=== PATIENT | female | born 1970 | race Caucasian/White ===

== ENCOUNTER 2018-07-20 20:03 | Emergency (ER) | payer MEDICAID ==
[~2018-07-20] VITALS: Ht 157.5 cm; Wt 119.0 kg
[2018-07-20 20:04] VITALS: Ht 157.5 cm; Wt 119.0 kg
[2018-07-20] MEDS ORDERED: KETOROLAC 30 MG INJ IM STA (21:05)
[2018-07-20] MEDS ORDERED: LIDOCAINE/MYLANTA 40 ML BTL PO ONE (21:30)
[2018-07-20] MEDS ORDERED: ACET500T98 PO (22:38)
[2018-07-20] MEDS ORDERED: MAG-19 PO (22:38)
[2018-07-20 23:31] VITALS: BP 160/84; PULSE 79; RESP 18
--- NOTE | 2018-07-21 07:01 | ERD ---
ER Documentation Chief Complaint Chief Complaint ABD PAIN STARTED TODAY; NO N/V/D/C HPI 48-year-old female presents for abdominal pain times 1 day. Past medical history of diabetes, hypertension. History of small bowel obstruction with colonic perforation requiring colostomy. Colostomy has since been reversed..Pa in is noted to be in the upper abdomen. She states that the pain is 10 out of 10, described as sharp. Denies any nausea, vomiting, diarrhea. She did have a bowel movement today which was noted to be normal. Patient did note that she ate some tacos yesterday which was greasy and may be the cause of her abdominal pain. Denies any shortness of breath or chest pain. ROS All systems reviewed and are negative except as per history of present illness. Medications Home Meds Active Scripts Acetaminophen (Tylenol) 500 Mg Tab, 500 MG PO Q4H PRN for PAIN, #30 TAB Prov:JIAN RAPHAEL 07/20/18 Magaldrate/Simethicone* (Mylanta*) 355 Ml Susp, 30 ML PO QID PRN for GASTROINTESTINAL UPSET, #1 BOTTLE Prov:JIAN RAPHAEL 07/20/18 Allergies Allergies: Coded Allergies: No Known Allergy (Unverified , 07/20/18) PMhx/Soc Hx Miscellaneous Medical Probl: Yes (DM, HTN) Hx Alcohol Use: No Hx Substance Use: No Hx Tobacco Use: No Smoking Status: Never smoker Physical Exam Vitals Vital Signs Date Temp Pulse Resp B/P (MAP) Pulse Ox O2 O2 Flow FiO2 Time Delivery Rate 07/20/18 99.0 79 18 160/84 98 Room Air 23:31 (109) 07/20/18 97.8 86 19 172/92 98 20:04 (118) Physical Exam Const: No acute distress Resp: Clear to auscultation bilaterally Cardio: Regular rate and rhythm, no murmurs Abd: Soft, non distended. Normal bowel sounds, mild epigastric tenderness to palpation, no McBurney's point tenderness, no Shafer sign, no rebound or guarding noted Skin: No petechiae or rashes Back: No midline or flank tenderness Ext: No cyanosis, or edema Neur: Awake and alert Psych: Normal Mood and Affect Results 24 hrs Laboratory Tests Test 07/20/18 21:14 07/20/18 21:16 07/20/18 21:19 Urine Color STRAW Urine Clarity SLIGHTLY CLOUDY Urine pH 6.0 Urine Specific [place] 1.028 Urine Ketones NEGATIVE mg/dL Urine Nitrite NEGATIVE mg/dL Urine Bilirubin NEGATIVE mg/dL Urine Urobilinogen NEGATIVE mg/dL Urine Leukocyte Esterase TRACE Mabel/ul Urine Microscopic RBC 2 /HPF Urine Microscopic WBC 2 /HPF Urine Squamous Epithelial Cells FEW /HPF Urine Bacteria FEW /HPF Urine Hemoglobin 1+ mg/dL Urine Glucose 3+ mg/dL Urine Total Protein 1+ mg/dl POC Beta HCG, Qualitative NEGATIVE White Blood Count 8.7 10^3/ul Red Blood Count 5.02 10^6/ul Hemoglobin 13.2 g/dl Hematocrit 42.4 % Mean Corpuscular Volume 84.5 fl Mean Corpuscular Hemoglobin 26.3 pg Mean Corpuscular 31.1 g/dl Hemoglobin Concent Red Cell Distribution Width 13.3 % Platelet Count 245 10^3/UL Mean Platelet Volume 11.3 fl Immature Granulocytes % 0.600 % Neutrophils % 52.9 % Lymphocytes % 36.8 % Monocytes % 6.6 % Eosinophils % 2.6 % Basophils % 0.5 % Nucleated Red Blood Cells % 0.0 /100WBC Immature Granulocytes # 0.050 10^3/ul Neutrophils # 4.6 10^3/ul Lymphocytes # 3.2 10^3/ul Monocytes # 0.6 10^3/ul Eosinophils # 0.2 10^3/ul Basophils # 0.0 10^3/ul Nucleated Red Blood Cells # 0.0 10^3/ul Sodium Level 142 mmol/L Potassium Level 4.3 mmol/L Chloride Level 99 mmol/L Carbon Dioxide Level 29 mmol/L Anion Gap 14 Blood Urea Nitrogen 15 mg/dl Creatinine 0.64 mg/dl Est Glomerular Filtrat > 60 mL/min Rate mL/min Glucose Level 427 mg/dl Calcium Level 9.4 mg/dl Total Bilirubin 0.0 mg/dl Direct Bilirubin 0.00 mg/dl Indirect Bilirubin 0.0 mg/dl Aspartate Amino 38 IU/L Transf (AST/SGOT) Alanine 40 IU/L Aminotransferase (ALT/SGPT) Alkaline Phosphatase 187 IU/L Total Protein 8.2 g/dl Albumin 4.2 g/dl Globulin 4.00 g/dl Albumin/Globulin Ratio 1.05 Lipase 128 U/L Current Medications Medications Dose Sig/Malissa Start Time Status Last (Trade) Ordered Route PRN Stop Time Admin Dose Reason Admin Ketorolac 30 mg ONCE STAT 07/20/18 DC 07/20/18 Tromethamine IM 21:05 21:21 (Toradol) 07/20/18 21:07 40 ml ONCE ONCE 07/20/18 DC 07/20/18 Miscellaneous PO 21:30 21:19 Medication 07/20/18 21:31 (Gi Cocktail (2)) Procedures/MDM Medical Decision Making: Differential diagnosis includes but not limited to acute gastritis, acute gastroenteritis, appendicitis, cholecystitis, pancreatitis. Patient appeared well on physical exam. Nontoxic appearing. EKG showed normal sinus rhythm, no ST or T wave changes. Labs: CBC showed no anemia, no elevated WBC to suggest infection CMP showed no electrolyte abnormalities, there was normal kidney and liver function. Blood sugar noted to be 427 Lipase was normal Urine was negative UA was negative for infection Patient does have a history of diabetes. On further questioning patient states that she not take her diabetes medication today. Patient does not look septic, labs were otherwise unremarkable. Patient was not in DKA. Patient advised to continue to take her medications for diabetes at home. Patient advised to follow-up with her primary care physician in 1-2 days for recheck of her blood sugar. Imaging: CT abdomen pelvis without contrast showed Mildly dilated loops of small bowel within the mid to left abdomen could represent an ileus or partial obstruction. Follow-up is recommended. Diastasis recti with moderate ventral abdominal hernia containing bowel. Fatty infiltration of the liver. Left adnexal 3.8 cm cysts. ED course: Patient was given Toradol, GI cocktail. Symptoms improved with treatment. Although the CT abdomen did show possibility of ileus versus partial obstruction, physical examination of the abdomen was soft, patient did have normal bowel movement after she developed abdominal pain today. There is low suspicion for small bowel obstruction. Possible the patient may have abdominal pain from the ventral abdominal hernia. There is no palpable masses noted on the abdomen. Patient advised to follow-up with her primary care physician for possible referral for general surgery Patient continues to have abdominal pain. Given that the symptoms resolved with treatment in the ER patient likely has an acute gastritis. Currently there is low suspicion for an acute abdomen. Prescription(s): Patient given prescription for Mylanta, Tylenol. Patient advised to follow up with PCP in 1-2 days. Patient advised to return to ED for new or worsening symptoms. Patient stable on discharge from the ED. Disclaimer: Inadvertent spelling and grammatical errors are likely due to EHR/dictation software use and do not reflect on the overall quality of patient care. Also, please note that the electronic time recorded on this note does not necessarily reflect the actual time of the patient encounter. Departure Diagnosis: Primary Impression: Abdominal pain Additional Impression: Hyperglycemia Condition: Fair Patient Instructions: Abdominal Pain, Ileus, Gastritis (Adult) Referrals: [facility] YOU HAVE RECEIVED A MEDICAL SCREENING EXAM AND THE RESULTS INDICATE THAT YOU DO NOT HAVE A CONDITION THAT REQUIRES URGENT TREATMENT IN THE EMERGENCY DEPARTMENT. FURTHER EVALUATION AND TREATMENT OF YOUR CONDITION CAN WAIT UNTIL YOU ARE SEEN IN YOUR DOCTORS OFFICE WITHIN THE NEXT 1-2 DAYS. IT IS YOUR RESPONSIBILITY TO MAKE AN APPOINTMENT FOR FOLOW-UP CARE. IF YOU HAVE A PRIMARY DOCTOR --you should call your primary doctor and schedule an appointment IF YOU DO NOT HAVE A PRIMARY DOCTOR YOU CAN CALL OUR PHYSICIAN REFERRAL HOTLINE AT IF YOU CAN NOT AFFORD TO SEE A PHYSICIAN YOU CAN CHOSE FROM THE FOLLOWING CO [facility] [address] [facility] [address] [facility] [address] [facility] [facility] [address] [facility]. [facility] [address] [facility]. [facility]. [address] Additional Instructions: Call your primary care doctor TOMORROW for an appointment during the next 1-2 days.See the doctor sooner or return here if your condition worsens before your appointment time. JIAN RAPHAEL DO Jul 21, 2018 07:01
== END 2018-07-20 23:32 | disposition home or self-care (01) ==
LOC: FTE 20:03
DX: R10.9 Unspecified abdominal pain (principal); E11.65 Type 2 diabetes mellitus with hyperglycemia; I10 Essential (primary) hypertension
CPT/HCPCS: 36415; 74176; 80053; 81001; 81025; 83690; 85025; 93005; 96372; J1885; Z7502; Z7610

== ENCOUNTER 2018-12-29 18:25 | Emergency (ER) | payer MEDICAID ==
[~2018-12-29] VITALS: Ht 162.6 cm; Wt 122.2 kg
[~2018-12-29 18:25] MED LIST: ACET500T98 PO; MAG-19 PO
[2018-12-29 18:36] VITALS: Ht 162.6 cm; Wt 122.2 kg
--- NOTE | 2018-12-29 18:45 | ERD ---
ER Documentation Chief Complaint Chief Complaint AP X'S 1 DAY HPI 48-year-old female diabetic, hypertensive history of colon perforation treated with diverting colostomy and subsequent reversal several years ago presents to the ED complaining of 1 day history of moderate, crampy, nonradiating diffuse upper abdominal pain. Denies nausea, vomiting, diarrhea or constipation. Had a normal bowel movement earlier today and continues to pass gas. Pain decreased significantly with ibuprofen and but is still present. No other relieving or exacerbating factors. Denies chest pain, palpitations or shortness of breath. No fevers or chills. ROS All systems reviewed and are negative except as per history of present illness. Medications Home Meds Active Scripts Acetaminophen (Tylenol) 500 Mg Tab, 500 MG PO Q4H PRN for PAIN, #30 TAB Prov:JIAN RAPHAEL DO 07/20/18 Magaldrate/Simethicone* (Mylanta*) 355 Ml Susp, 30 ML PO QID PRN for GASTROINTESTINAL UPSET, #1 BOTTLE Prov:JIAN RAPHAEL DO 07/20/18 Allergies Allergies: Coded Allergies: No Known Allergy (Unverified , 07/20/18) PMhx/Soc Reviewed in chart. As per HPI. History of Surgery: Yes (Bowel resection, colostomy and subsequent reversal) Anesthesia Reaction: No Hx Neurological Disorder: No Hx Respiratory Disorders: No Hx Cardiac Disorders: Yes (Hypertension) Hx Psychiatric Problems: No Hx Miscellaneous Medical Probl: Yes (Diabetes) Hx Alcohol Use: No Hx Substance Use: No Hx Tobacco Use: No FmHx Mother: Diabetes. No family history of cancer or stroke Physical Exam Vitals Vital Signs Date Temp Pulse Resp B/P (MAP) Pulse Ox O2 O2 Flow FiO2 Time Delivery Rate 12/29/18 84 18 129/83 98 Room Air 21:14 (98) 12/29/18 97.8 91 18 168/103 97 18:36 (124) Physical Exam Const: Alert, mild distress Head: Atraumatic Eyes: Normal Conjunctiva ENT: Normal External Ears, Nose and Mouth. Neck: Full range of motion. No meningismus. Resp: Clear to auscultation bilaterally Cardio: Regular rate and rhythm, no murmurs Abd: Normal bowel sounds. Soft, obese, mild, diffuse upper abdominal tenderness. Negative Shafer sign. No rebound or guarding. Well-healed midline incision. Skin: No petechiae or rashes Back: No midline or flank tenderness Ext: No cyanosis, or edema Neur: Awake and alert Psych: Normal Mood and Affect Result Diagram: 12/29/18193712/29/181937 Results 24 hrs Laboratory Tests Test 12/29/18 19:38 White Blood Count 9.0 10^3/ul Red Blood Count 4.38 10^6/ul Hemoglobin 11.7 g/dl Hematocrit 37.3 % Mean Corpuscular Volume 85.2 fl Mean Corpuscular Hemoglobin 26.7 pg Mean Corpuscular Hemoglobin Concent 31.4 g/dl Red Cell Distribution Width 13.6 % Platelet Count 269 10^3/UL Mean Platelet Volume 10.7 fl Immature Granulocytes % 0.400 % Neutrophils % 63.3 % Lymphocytes % 28.2 % Monocytes % 5.5 % Eosinophils % 2.2 % Basophils % 0.4 % Nucleated Red Blood Cells % 0.0 /100WBC Immature Granulocytes # 0.040 10^3/ul Neutrophils # 5.7 10^3/ul Lymphocytes # 2.5 10^3/ul Monocytes # 0.5 10^3/ul Eosinophils # 0.2 10^3/ul Basophils # 0.0 10^3/ul Nucleated Red Blood Cells # 0.0 10^3/ul Sodium Level 141 mmol/L Potassium Level 4.0 mmol/L Chloride Level 102 mmol/L Carbon Dioxide Level 29 mmol/L Anion Gap 10 Blood Urea Nitrogen 16 mg/dl Creatinine 1.00 mg/dl Est Glomerular Filtrat Rate mL/min 59 mL/min Glucose Level 258 mg/dl Calcium Level 9.0 mg/dl Total Bilirubin 0.4 mg/dl Direct Bilirubin 0.00 mg/dl Indirect Bilirubin 0.4 mg/dl Aspartate Amino Transf (AST/SGOT) 36 IU/L Alanine Aminotransferase (ALT/SGPT) 32 IU/L Alkaline Phosphatase 111 IU/L Troponin I < 0.012 ng/ml Total Protein 7.7 g/dl Albumin 4.0 g/dl Globulin 3.70 g/dl Albumin/Globulin Ratio 1.08 Lipase 204 U/L Procedures/MDM DOCUMENTS REVIEWED: ED nurse, prior records EKG: Time: 1935. Sinus rhythm. Ventricular rate 82, normal MS and QRS intervals. No acute ST segment elevation or depression. No axis deviation or ectopy. My Interpretation: Normal EKG IMAGING: PROCEDURE: US Abdomen Right Upper Quadrant. CLINICAL INDICATION: Abdominal pain TECHNIQUE: Multiple real-time longitudinal and transverse images were acquired of the patient's right upper quadrant abdomen utilizing a curved array transducer. COMPARISON: Comparison to the previous CT of the abdomen and pelvis done 07/20/2018. On the previous CT there was diastases recti with a moderate ventral abdominal hernia containing bowel, evidence of previous bowel resection along with the suggestion of at least partial small bowel obstruction. 0.5 cm left adnexal cyst was evident. The liver appeared enlarged and diffusely fatty infiltrated. FINDINGS: Liver: The liver is enlarged in size with the sagittal diameter of the right lobe measuring 19.8 cm. The hepatic echotexture is diffusely increased. No focal lesion is evident. There is normal directional flow of the main portal vein. Gallbladder: The gallbladder appears somewhat contracted. No shadowing stone is identified. Bile ducts: There is no significant intra or extrahepatic bile duct dilatation. The common bile duct measures 4.2 mm in cross diameter. No choledocholiths are seen within the visualized portions of the duct. Pancreas: The visualized head, body and proximal tail of the pancreas appear unremarkable. Right kidney: Normal in echotexture and in size. The right kidney measures 11.8 cm in length. No mass, pathological calcification, or hydronephrosis is evident. Peritoneum: There is no free intraperitoneal fluid IMPRESSION: 1. The gallbladder is somewhat contracted but no shadowing stone is identified. The common bile duct is not dilated. The visualized pancreas appears normal. 2. Hepatomegaly with diffusely increased echotexture most compatible with fatty infiltration. No focal lesion is identified and there is normal directional flow of the main portal vein. 3. Normal right kidney. 4. No free intraperitoneal fluid is evident. Physician Reji Date Time Electronically viewed and signed by Physician Reji on 12/29/2018 20:21 REEXAMINATION/REEVALUATION: Time: 20:50. Doing well. Abdomen soft nontender. Asymptomatic. MEDICAL DECISION MAKIN-year-old female diabetic, hypertensive history of colon perforation treated with diverting colostomy and subsequent reversal several years ago presents to the ED complaining of several hour history of moderate, crampy, nonradiating diffuse upper abdominal pain. CBC to evaluate for leukocytosis and anemia is unremarkable. Chemistry to evaluate for electrol yte abnormalities, renal insufficiency and hyperglycemia reveals mild hyperglycemia but no anion gap acidosis or DKA. Lipase is not elevated and consistent with pancreatitis. Ultrasound of the right upper quadrant to evaluate for cholelithiasis/cholecystitis is unremarkable. No ischemic EKG changes, elevated troponin or signs of a cardiac etiology. Patient presents with acute abdominal pain which is resolved of uncertain etiology. Possible gastritis/GERD. Abdominal exam is benign without tenderness, rebound, guarding, signs of peritonitis or other intra-abdominal process including bowel obstruction and CT scan is not indicated. Stable for discharge with precautionary instructions and outpatient follow-up as counseled. Though the patient's latest blood pressure was elevated (>120/80), the patient has a known history of hypertension and urged to pursue adjustment of their medical therapy within a week with their primary care physician. Please refer to the medication reconciliation form for the current list of hypertensive medications. Counseled patient regarding diagnostic workup, diagnosis and need for followup. Understands to return to ED if symptoms recur, worsen or any other concerns. Departure Diagnosis: Primary Impression: Acute bilateral upper abdominal pain Additional Impressions: Diabetes mellitus out of control Diabetes mellitus type: type 2 Glycemic state: with hyperglycemia Qualified Codes: E11.65 - Type 2 diabetes mellitus with hyperglycemia Accelerated hypertension Condition: Stable HETAL JONES MD Dec 29, 2018 18:45
[2018-12-29 21:14] VITALS: BP 129/83; PULSE 84; RESP 18
== END 2018-12-29 21:14 | disposition home or self-care (01) ==
LOC: E/R 18:25
DX: R10.11 Right upper quadrant pain (principal); R10.12 Left upper quadrant pain; E11.65 Type 2 diabetes mellitus with hyperglycemia; I10 Essential (primary) hypertension
CPT/HCPCS: 36415; 76705; 80053; 83690; 84484; 85025; 93005; Z7502